=== PATIENT | female | born 2000 | race American Indian/Alaskan Native ===

== ENCOUNTER 2020-08-25 09:21 | Outpatient (CLI) | payer BC ==
--- NOTE | 2020-08-25 10:21 | Ultrasound Report ---
ULTRASOUND BREAST BILATERAL COMPLETE, 08/25/2020 CLINICAL INFORMATION / INDICATION: Bilateral breast pain for approximately one month. TECHNIQUE: Complete sonographic evaluation of all 4 quadrants and retroareolar region was performed. COMPARISON: None. FINDINGS: There is dense fibroglandular tissue bilaterally. There is no evidence of a cystic or solid mass. No posterior shadowing or distortion are identified. There are small benign-appearing lymph nodes in eac h axilla, the largest of which measures 4.6 mm short axis. IMPRESSION: No sonographic evidence of malignancy. Follow up recommendation: Unless otherwise clinically indicated, recommend patient return to routine screening mammography at age 39. BI-RADS Category 2: Benign. A normal or "negative" report should not preclude biopsy or follow-up of a clinically suspicious find ing. Signer Name: Óscar Aguirre MD Signed: 08/25/2020 10:17 AM Workstation Name: [id number]
== END 2020-08-25 09:22 | disposition home or self-care (01) ==
LOC: US 09:21
PROVIDERS: ATTEND Advanced Practice Midwife
DX: N64.4 Mastodynia (principal); N64.89 Other specified disorders of breast